=== PATIENT | male | born 1975 ===

== ENCOUNTER 2018-09-07 10:42 | Emergency (ER) | payer OTHER ==
[2018-09-07 11:04] VITALS: TEMP 97.9
[2018-09-07 11:24] LABS: MEAN CELL VOLUME 87.8 fL (80.0-94.0); MEAN CORPUSCULAR HEMOGLOBIN 29.8 pg (27.0-31.0); MEAN CORPUSCULAR HGB CONC 33.9 g/dL (33.0-37.0); MEAN PLATELET VOLUME 7.6 fL (7.2-11.7); RBC 5.04 Mil/uL (4.40-5.90); RED CELL DISTRIBUTION WIDTH 13.3 % (11.5-14.5); WHITE BLOOD COUNT 6.4 K/uL (4.8-10.8)
[2018-09-07] MEDS ORDERED: Sodium Chloride 0.9% 1,000 ML IV ONE (11:24)
[2018-09-07 11:36] LABS: ALB/GLOB RATIO 1.6 (1.0-2.1); ALBUMIN 4.3 g/dL (3.5-5.0); ALT/SGPT 37 U/L (21-72); AST/SGOT 19 U/L (17-59); BLOOD UREA NITROGEN 15 mg/dL (9-20); CALCIUM 9.1 mg/dl (8.6-10.4); GFR NON-AFRICAN AMERICAN > 60
--- NOTE | 2018-09-07 11:50 | C.PDOC ---
History Of Present Illness 42 yo male c/o dizziness, abdominal pain, n/v/d since for four days. Pt notes that one Sunday he drank an espresso and then he started to have dizziness. Later that day he had a shot of whiskey and started having abdominal pain. Notes he had one episode of vomiting and diarrhea today. Pt notes he is not dizzy when he is laying in bed not moving but when he stands up or moves his head "the room is spinning." Denies chest pain, sob, head trauma, fever, neck pain, or gu symptoms. Time Seen by Provider: 09/07/18 11:17 Chief Complaint (Nursing): Abdominal Pain History Per: Patient History/Exam Limitations: no limitations Onset/Duration Of Symptoms: Days Current Symptoms Are (Timing): Still Present Past Medical History Vital Signs: Last Vital Signs Temp 97.9 F 09/07/18 10:56 Pulse 64 09/07/18 10:56 Resp 18 09/07/18 10:56 BP 107/70 09/07/18 10:56 Pulse Ox 99 09/07/18 10:56 Family History: States: Unknown Family Hx - Social History Hx Alcohol Use: Yes Hx Substance Use: No Review Of Systems Except As Marked, All Systems Reviewed And Found Negative. Gastrointestinal: Positive for: Nausea, Vomiting, Abdominal Pain, Diarrhea Neurological: Positive for: Dizziness Physical Exam - Physical Exam Appears: Well, Non-toxic, No Acute Distress Skin: Normal Color, Warm, Dry Head: Atraumatic, Normacephalic Eye(s): bilateral: Normal Inspection, PERRL, EOMI Ear(s): Bilateral: Normal Nose: Normal Oral Mucosa: Moist Throat: Normal, No Erythema, No Exudate Neck: Normal, Normal ROM, Supple Chest: Symmetrical Cardiovascular: Rhythm Regular Respiratory: Normal Breath Sounds, No Accessory Muscle Use Gastrointestinal/Abdominal: Soft, Tenderness ((+) epigastric tenderness), No Distention, No Guarding Back: Normal Inspection Extremity: Normal ROM Neurological/Psych: Oriented x3, Normal Speech, Normal Cognition, Normal Cranial Nerves (2-12 intact), Other (no nystagnus) ED Course And Treatment - Laboratory Results Result Diagrams: 09/07/18 11:21 09/07/18 11:21 O2 Sat by Pulse Oximetry: 99 - Other Rad Obstructive XR X-Ray: Viewed By Me, Read By Radiologist Interpretation: Accession No. : [id number]. Patient Name / ID : NINI ALLEN / [id number]. Exam Date : 09/07/2018 12:16:00 ( Approved ). Study Comment : Sex / Age : M / 42Y. Creator : Russell Rosas MD. Dictator : Russell Rosas MD. Foreign Banknote Teller : Home Care Associate : Russell Rosas MD. Approver2 : Report Date : 09/07/2018 16:37:50. My Comment : . Abdomen three views. HISTORY: Abdominal pain. COMPARISON: None available. FINDINGS: Biapical pleural thickening. Diffuse increased interstitial lung markings. Heart size within normal limits. Degenerative changes in the spine. Few distended loops of small bowel seen within the mid and lower abdomen. Fecal retention in the colon. IMPRESSION: Nonspecific bowel gas pattern with fecal retention in the colon. Few distended loops of small bowel seen within the mid and lower abdomen. - CT Scan/US head cT Other Rad Studies (CT/US): Read By Radiologist, Radiology Report Reviewed CT/US Interpretation: Accession No. : [id number]. Patient Name / ID : NINI ALLEN / [id number]. Exam Date : 09/07/2018 14:01:31 ( Approved ). Study Comment : Sex / Age : M / 42Y. Creator : Lacie Cox. Dictator : Russell Rosas MD. Foreign Banknote Teller : Home Care Associate : Russell Rosas MD. Approver2 : Report Date : 09/07/2018 14:11:42. My Comment : . Date of service: 09/07/2018. PROCEDURE: CT HEAD WITHOUT CONTRAST. HISTORY: dizziness. COMPARISON: None available. TECHNIQUE: Axial computed tomography images were obtained through the head/brain without intravenous contrast. Radiation dose: Total exam DLP = 1040.56 mGy-cm. This CT exam was performed using one or more of the following dose reduction techniques: Automated exposure control, adjustment of the mA and/or kV according to patient size, and/or use of iterative reconstruction technique. FINDINGS: HEMORRHAGE: No intracranial hemorrhage. BRAIN: No mass effect or edema. No atrophy or chronic microvascular ischemic changes. VENTRICLES: Unremarkable. No hydrocephalus. CALVARIUM: Unremarkable. PARANASAL SINUSES: Mild mucosal thickening of the right maxillary sinus. MASTOID AIR CELLS: Unremarkable as visualized. No inflammatory changes. OTHER FINDINGS: None. IMPRESSION: No acute intracranial abnormality. If symptoms persists, consider correlation with MRI. Progress Note: Pt treated with Pepcid, toradol and meclizine. On re-evaluation, pt notes abdominal pain resolved. Dizziness improved minimally. Ct head and orthostatics ordered. On re-evaluation, pt notes symptoms improved. Pt was offered admission for further evaluation and declined. Pt requests to be disc harged with rx and will return if symtpoms persist. Steady gait. No focal defits. No neurological deficts, photophobia, fever, or ruchal rigidity. Pt was instructed to follow up with PMD in 1-2 days. Case discussed with Dr Lou, agreed upon plan and discharge. Disposition - Disposition Referrals: at [facility] [Outside] Disposition: HOME/ ROUTINE Disposition Time: 15:03 Condition: STABLE Additional Instructions: Follow up with the clinic on Sunday. Return to ER if symptoms persist or worsen. Prescriptions: Famotidine [Pepcid] 20 mg PO BID #10 tab Meclizine [Antivert] 25 mg PO BID #14 tab Instructions: Vertigo (a Type of Dizziness) (DC) Forms: [employer] (Maori) Print Language: TAMAZIGHT - Clinical Impression Clinical Impression: Dizziness, Abdominal pain
[2018-09-07 11:55] LABS: URINE BACTERIA RARE (<OCC); URINE BILIRUBIN NEGATIVE (NEGATIVE); URINE BLOOD NEGATIVE (NEGATIVE); URINE CLARITY Clear (Clear); URINE COLOR Yellow (YELLOW); URINE GLUCOSE (UA) NORMAL (Normal); URINE LEUKOCYTE ESTERASE NEG Leu/uL (Negative); URINE PROTEIN NEGATIVE (NEGATIVE); URINE UROBILINOGEN NORMAL mg/dL (0.2-1.0)
[2018-09-07 12:18] LABS: BARBITURATES, UR NEGATIVE (NEGATIVE); BENZODIAZEPINES, UR NEGATIVE (NEGATIVE); OPIATES, UR NEGATIVE (NEGATIVE); PHENCYCLIDINE, UR NEGATIVE (NEGATIVE)
--- NOTE | 2018-09-07 14:27 | CT ---
Date of service: 09/07/2018 PROCEDURE: CT HEAD WITHOUT CONTRAST. HISTORY: dizziness COMPARISON: None available. TECHNIQUE: Axial computed tomography images were obtained through the head/brain without intravenous contrast. Radiation dose: Total exam DLP = 1040.56 mGy-cm. This CT exam was performed using one or more of the following dose reduction techniques: Automated exposure control, adjustment of the mA and/or kV according to patient size, and/or use of iterative reconstruction technique. FINDINGS: HEMORRHAGE: No intracranial hemorrhage. BRAIN: No mass effect or edema. No atrophy or chronic microvascular ischemic changes. VENTRICLES: Unremarkable. No hydrocephalus. CALVARIUM: Unremarkable. PARANASAL SINUSES: Mild mucosal thickening of the right maxillary sinus. MASTOID AIR CELLS: Unremarkable as visualized. No inflammatory changes. OTHER FINDINGS: None. IMPRESSION: No acute intracranial abnormality. If symptoms persists, consider correlation with MRI.
[2018-09-07 14:55] LABS: LIPASE 76 U/L (23-300)
[2018-09-07 15:22] VITALS: BP 104/75; PULSE 68; RESP 68
--- NOTE | 2018-09-07 16:41 | RAD ---
Abdomen three views HISTORY: Abdominal pain. COMPARISON: None available. FINDINGS: Biapical pleural thickening. Diffuse increased interstitial lung markings. Heart size within normal limits. Degenerative changes in the spine. Few distended loops of small bowel seen within the mid and lower abdomen. Fecal retention in the colon. IMPRESSION: Nonspecific bowel gas pattern with fecal retention in the colon. Few distended loops of small bowel seen within the mid and lower abdomen.
[2018-09-07 19:50] VITALS: O2SAT 99
== END 2018-09-07 15:21 | disposition home or self-care (01) ==
LOC: C.ER 10:42
DX: R42 Dizziness and giddiness (principal); R10.13 Epigastric pain
CPT/HCPCS: 70450; 74022; 80053; 80320; 80324; 80345; 80346; 80349; 80353; 80358; 80361; 81001; 83690; 83992; 85027; 96361; 96374; 96375; 99285; J1885; J7030